=== PATIENT | male | born 1945 | race Caucasian/White ===

== ENCOUNTER 2020-06-24 16:59 | Emergency (ER) | payer OTHER, SELFPAY ==
[2020-06-24] VITALS (10 sets, daily range): BP systolic 131–160; BP diastolic 64–76; PULSE 57–69; RESP 16; TEMP 36.7; O2SAT 97–99; BMI 30.5
--- NOTE | 2020-06-24 17:56 | ED_ITS ---
HPI - Extremity Problem General Chief complaint: Extremity Problem,Nontraumatic Stated complaint: Right Hip Time Seen by Provider: 06/24/20 17:56 Source: patient Mode of arrival: Ambulatory Limitations: no limitations History of Present Illness HPI Narrative: 74-year-old male nonsmoker without significant medical history presents with his in the chief complaint of right hip pain for the last few days in the absence of any known injury. Patient states he had a right total knee performed at the [facility] about 3 weeks ago and everything had gone quite well. He has been ambulatory with a walker and been going to physical therapy and had been doing very well. He denies any fever chills nor nausea or vomiting. He denies any calf pain or swelling nor any thigh pain, swelling, redness. He states that he had an aggressive physical therapy session on Wednesday and started having increasing pain over the past day or 2. His pain is significantly worse with range of motion and improves with rest. He denies any numbness, tingling or weakness. MD Complaint: extremity pain and joint paint Onset (ago): day(s) Pain Consistency: intermittent Location: right Quality: stabbing and aching Radiation: none Relieving factors: rest Exacerbating factors: range of motion, weight bearing and walking Associated symptoms: denies other symptoms Context: recent surgery/procedure Related Data Previous Rx's Medication Instructions Recorded oxycodone 5 mg PO Q4-6H PRN #20 tab 06/24/20 Allergies Allergy/AdvReac Type Severity Reaction Status Date / Time No Known Drug Allergies Allergy Verified 06/24/20 17:59 Review of Systems Constitutional Constitutional: Denies chills, Denies fatigue, Denies fever(s), Denies frequent falls, Denies lethargy and Denies weakness Eyes Eyes: Denies change in vision, Denies eye discharge, Denies irritation and Denies loss of vision ENT Ears, Nose, Mouth, and Throat: Denies change in voice, Denies dizziness, Denies neck pain, Denies sore throat and Denies throat swelling Cardiovascular Cardiovascular: Denies chest pain, Denies irregular heart rhythm, Denies lightheadedness, Denies palpitations, Denies dyspnea, Denies dyspnea on exertion and Denies orthopnea Respiratory Respiratory: Denies cough, Denies dyspnea, Denies dyspnea on exertion and Denies wheezing Gastrointestinal Gastrointestinal: Denies abdominal pain, Denies change in bowel habits, Denies diarrhea, Denies nausea and Denies vomiting Musculoskeletal Musculoskeletal: Reports arthralgias, Denies neck pain and Denies numbness Integumentary/Breasts Skin/Breast: Denies pruritus, Denies erythema, Denies rash and Denies wounds Neurologic Neurologic: Denies behavioral changes, Denies confusion, Denies dizziness, Denies frequent falls, Denies loss of vision, Denies numbness and Denies weakness Psychiatric Psychiatric: Denies anxiety, Denies behavioral changes, Denies confusion, Denies depression, Denies homicidal ideation and Denies suicidal ideation Endocrine Endocrine: Denies fatigue, Denies flushing and Denies palpitations Hematologic/Lymphatic Hematologic/Lymphatic: Denies easy bruising Allergic/Immunologic Allergic/Immunologic: Denies urticaria, Denies throat swelling and Denies wheezing Patient History Social History Smoking Status: Never smoker Smoking Status: Never smoker alcohol intake frequency: 0-2 drinks per day Substance Use Type: does not use Exam Narrative Exam Narrative: GEN: AOx3 and in mild distress EYES: Pupils are equal, round, and reactive to light and accommodation. Extraoccular muscles are intact bilaterally. There is no subconjunctival hemorrhage or exudate. CHEST: Lungs are clear to auscultation bilaterally and free of wheezes, rales, or rhonchi. Heart rate is regular rhythm, there are no murmurs, clicks, rubs, or gallops. There is no chest wall tenderness. ABD: Abdomen is soft and nontender. There is no guarding or rebound. Bowel sounds are normal in all 4 quadrants. There is no mass or organomegaly. EXT: Right hip pain significantly worse with active range of motion versus passive, no easily reproducible pain on palpation Right knee incision clean, dry and intact, no erythema or large effusion. No calf pain, swelling or redness. No thigh pain, swelling or redness. SKIN: Warm, pink, and dry. No erythema or rash Initial Vital Signs Initial Vital Signs: Vital Signs Pulse Rate 69 06/24/20 17:00 Respiratory Rate 16 06/24/20 17:00 Blood Pressure 143/69 H 06/24/20 17:00 Pulse Oximetry 98 06/24/20 17:00 Course Orders Ordered: ED Orders 06/24/20 17:57 XR hip w pel if done RT 2V Stat Discontinued Medications Ketorolac Tromethamine (Ketorolac 60 Mg/2 Ml Vial) 10 mg IV NOW ONE Stop: 06/24/20 19:16 Last Admin: 06/24/20 19:22 Dose: 10 mg Documented by: RAO Reevaluation(s) Reevaluation #1: significant improvement with above stated therapies, ambulatory with walker Consultations Consultation #1: call to network relations consultant ortho for patient own orthopedist. After lengthy discussion we share the opinion that this is unlikely infection or clot given exam and story. Most likely due to combination of aggressive PT and change in gait post operation Vital Signs Vital signs: Vital Signs - 8 hr 06/24/20 17:00 06/24/20 17:04 06/24/20 17:14 Temperature 98.1 F Pulse Rate 69 65 60 Respiratory Rate 16 16 Blood Pressure 143/69 H 139/64 Pulse Oximetry 98 99 98 06/24/20 17:30 06/24/20 18:00 06/24/20 18:14 Temperature Pulse Rate 59 L 60 58 L Respiratory Rate 16 Blood Pressure 142/65 H 131/69 139/72 Pulse Oximetry 97 98 98 06/24/20 18:30 06/24/20 19:00 06/24/20 19:30 Temperature Pulse Rate 57 L 62 63 Respiratory Rate Blood Pressure 135/64 152/70 H 160/76 H Pulse Oximetry 98 97 98 06/24/20 19:56 Temperature Pulse Rate 60 Respiratory Rate 16 Blood Pressure 158/71 H Pulse Oximetry 97 MDM - Extremity (Nontraumatic) Imaging Data Extremity x-ray #1: Radiologist's Impression: [address] [id number] ReportSigned Patient: Jensen Franklin [facility]#: [id number]: [id number]:[id number]/Sex: 74 / MDate of Service: 06/24/20Loc: EDAccession Number: [id number] Procedure: XR hip w pel if done RT 2V Ordering Provider: Hardy Childs D.O. PROCEDURE: XR HIP W PEL IF DONE RT 2V INDICATIONS: hip pain TECHNIQUE: AP pelvis with lateral view(s) of the right hip(s). COMPARISON: None. FINDINGS: Bones: No fractures or dislocations. Pelvic ring appears intact. No suspicious bony lesions. Moderate degenerative narrowing is present at the hip joints bilaterally. Degenerative changes are present within the lower lumbar spine. Soft tissues: The visualized bowel gas pattern is normal. No suspicious soft tissue calcifications. IMPRESSION: No visualized acute fracture or dislocation. However, if clinical concern and/or pain persist, short interval imaging followup in 7-10 days is recommended, as occult injury cannot be definitively excluded. Dictated by: Roxana Nichols M.D. on 06/24/2020 at 17:14 Approved by: Roxana Nichols M.D. on 06/24/2020 at 17:15 Discharge Plan Departure Patient Disposition: Home Clinical Impression: Acute pain of right hip Instructions: DI for Hip Pain Activity Restrictions/Additional Instructions: *You have been diagnosed with [acute right hip pain, most likely a consequence of aggressive physical therapy and a change in your gait after your knee surgery. Your x-ray is very reassuring as is your story and physical exam.] *What to do: *Take medications as directed *Follow up with your orthopedic provider in 2-3 days, call for an appointment. Let them know you were seen in the Emergency Department and that we ask that you be seen in follow up *Return to ER if you should have any new, worsening or concerning symptoms, such as [worsening pain, redness, swelling, fever >101F, or other bothersome symptoms ] Prescriptions: New oxycodone 5 mg tablet 5 mg PO Q4-6H PRN (Reason: pain) Qty: 20 RF: 0
[2020-06-24] MEDS: KETOROLAC 60 MG/2 ML VIAL 10 MG IV (19:22)
== END 2020-06-24 20:00 | disposition home or self-care (01) ==
PROVIDERS: Emergency Provider Emergency Medicine
DX: M25.551 Pain in right hip (principal); Z96.651 Presence of right artificial knee joint
CPT/HCPCS: 73502; 96374; 99281; 99284; J1885